=== PATIENT | female | born 1985 | race Caucasian/White ===

== ENCOUNTER 2017-02-28 10:46 | Emergency (ER) | payer OTHER, SELFPAY ==
[~2017-02-28] VITALS: Ht 162.6 cm; Wt 51.5 kg
[2017-02-28 11:25] LABS: BASO % 0.2 % (0.0-1.0); EOS # 0.1 K/mm3 (0.0-0.50); EOS % 1.4 % (0.0-3.0); LARGE UNSTAINED CELL # 0.1 K/mm3 (0.0-0.4); LARGE UNSTAINED CELL % 1.4 % (0.0-4.0); LYMPH # 1.4 K/mm3 (1.5-6.5); LYMPH % 13.8 % (24.0-44.0); MEAN CORPUSCULAR HEMOGLOBIN 31.1 pg (27.0-33.0); MEAN CORPUSCULAR HGB CONC 34.2 g/dl (32.0-36.5); MEAN CORPUSCULAR VOLUME 90.7 fl (80.0-96.0); MONO # 0.4 K/mm3 (0.0-0.8); MONO % 4.5 % (0.0-5.0); NEUTROPHILS # 7.4 K/mm3 (1.8-7.7); NEUTROPHILS % 78.7 % (36.0-66.0); PLATELET COUNT, AUTOMATED 243 k/mm3 (150-450); RED CELL DISTRIBUTION WIDTH 12.8 % (11.5-14.5); WHITE BLOOD COUNT 9.4 K/mm3 (4.0-10.0)
[2017-02-28 12:01] LABS: ANION GAP 9 MEQ/L (8-16); BLOOD UREA NITROGEN 10 MG/DL (7-18); CALCIUM LEVEL 8.4 MG/DL (8.5-10.1); CARBON DIOXIDE LEVEL 23 MEQ/L (21-32); CHLORIDE LEVEL 107 MEQ/L (98-107); CREATININE FOR GFR 0.66 MG/DL (0.55-1.02); FREE T4 1.21 NG/DL (0.76-1.46); GLOMERULAR FILTRATION RATE > 60.0 (>60); GLUCOSE, FASTING 103 MG/DL (70-105); HCG, SERUM QUANTITATIVE 50574 MIU/ML; MAGNESIUM LEVEL 1.5 MG/DL (1.8-2.4); POTASSIUM SERUM 3.6 MEQ/L (3.5-5.1); SODIUM LEVEL 139 MEQ/L (136-145)
--- NOTE | 2017-02-28 12:47 | REP ---
Clinical: Syncope. Dating and viability. Technique: Transabdominal first trimester obstetrical ultrasound. Findings: Single live early intrauterine is appreciated. Gestational sac with yolk sac and pole identified. [place]-rump length of 4 cm corresponds to 10 weeks 6 days gestational age with estimated date of delivery 09/20/2017. heart rate equals 162 beats per minute. Small subchorionic hemorrhage measures 10 x 5 x 10 mm. Impression: Single live early intrauterine at 10 weeks 6 days gestational age. Small subchorionic hemorrhage. Complete anatomical assessment should be performed and 19-20 weeks. Signed by Kvng Leo MD 02/28/2017 12:39 P
[2017-02-28 14:23] VITALS: BP 136/58
--- NOTE | 2017-02-28 19:38 | ECGEPIP ---
Stationary ECG Study [facility] - ED Test Date: 2017-02-28 Pat Name: MICKIE CARBAJAL Department: Room: - Gender: F [employer]: valerio : 1985 Requested By: Antony Conner Order Number: [id number] Reading MD: Antony Conner Measurements Intervals [place] Rate: 47 P: 46 MI: 112 QRS: 73 QRSD: 94 T: 57 QT: 437 QTc: 387 Interpretive Statements SINUS BRADYCARDIA WITH SHORT MI INTERVAL NONSPECIFIC ST T WAVE CHANGES 06/18/15 RATE DECREASED Electronically Signed On 02-28-2017 19:37:59 EDT by Antony Conner
[2017-03-16] MEDS ORDERED: MULT1TAB10 PO (15:42)
== END 2017-02-28 14:43 | disposition home or self-care (01) ==
LOC: M ED 10:46
DX: O36.8911 Maternal care for other specified fetal problems, first trimester, fetus 1 (principal); R42 Dizziness and giddiness; G43.909 Migraine, unspecified, not intractable, without status migrainosus; O99.351 Diseases of the nervous system complicating pregnancy, first trimester; O99.511 Diseases of the respiratory system complicating pregnancy, first trimester; J45.909 Unspecified asthma, uncomplicated; O99.611 Diseases of the digestive system complicating pregnancy, first trimester; K21.9 Gastro-esophageal reflux disease without esophagitis; Z86.14 Personal history of Methicillin resistant Staphylococcus aureus infection; Z3A.10 10 weeks gestation of pregnancy

== ENCOUNTER 2017-03-17 13:54 | Day surgery (SDC) | payer OTHER ==
[~2017-03-17] VITALS: Ht 162.6 cm; Wt 52.2 kg
[~2017-03-17 13:54] MED LIST: MULT1TAB10 PO
[2017-03-17] MEDS ORDERED: VANCOMYCIN HCL 750 MG, VIAL MATE ADAPTER 1 EACH in D5W 250 ML IV ONE (14:00)
[2017-03-17] MEDS ORDERED: VANCOMYCIN HCL 750 MG in D5W 250 ML IV ONE (14:30)
[2017-03-17] MEDS ORDERED: MIDAZOLAM INJ 2 MG/2 ML VIAL (J2250) As Ordered ONE (16:00)
[2017-03-17] MEDS ORDERED: fentaNYL 100 MCG/2 ML INJECTION (J3010) As Ordered ONE (16:00)
[2017-03-17] MEDS ORDERED: PROPOFOL 200 MG/20 ML VIAL As Ordered ONE (16:08)
[2017-03-17] MEDS ORDERED: LIDOCAINE 2% INJ 100 MG/5 ML SDV (FOR ANES.) As Ordered ONE (16:08)
[2017-03-17] MEDS ORDERED: LIDOCAINE 1% SDV INJ 30 ML VIAL As Ordered ONE (16:12)
[2017-03-17] MEDS ORDERED: ePHEDrine SULFATE 25 MG/5 ML(5MG/ML) SYRINGE As Ordered ONE (16:45)
[2017-03-17] MEDS ORDERED: ONDANSETRON 4MG/2ML VIAL (J2405) As Ordered ONE (16:48)
--- NOTE | 2017-03-17 17:27 | RO ---
DATE OF PROCEDURE: 03/17/2017 PREPROCEDURE DIAGNOSIS: Recurrent unexplained syncope. POSTPROCEDURE DIAGNOSIS: Recurrent unexplained syncope. FINDINGS: Recurrent unexplained syncope. PROCEDURE: Implantation of a [employer] LINQ implantable loop recorder. SURGEON: Dr. Talat Fair DERMATOLOGY PHYSICIAN ASSISTANT: None. ANESTHESIA: Lidocaine 1% local/monitored anesthetic care. No specimens. Estimated blood loss: Less than 2 mL. No blood products replaced. No drains. No complications. DESCRIPTION OF PROCEDURE: The patient was prepped and draped over the left anterior chest, sternum and left upper quadrant. Lidocaine 1% was used for local anesthetic. An incision was made with a #15 blade approximately 1 cm in length at the fourth left interspace about a half inch lateral to the left parasternal border. The insertion tool guide was placed into the incision and advanced parallel to the skin and the subcutaneous fat and then rotated 180 degrees. The plunger was then placed into the insertion tool and used to advance the implantable loop recorder into the subcutaneous fat. The plunger was then removed and then the insertion tool guide was removed leaving the loop recorder behind. The initial R wave amplitude was 1.08 millivolts. A 4.0 Biosyn subcutaneous suture was placed to approximate the skin and was used only temporarily to approximate the skin. Next, two layers of Dermabond was applied. Once the Dermabond was dry, the Biosyn suture was removed. Next, Mastisol was placed above and below the incision on the skin and then Steri-Strips were applied perpendicular and across the incision. The patient tolerated the procedure well without any immediate complications. The implantable loop recorder implanted was a [email or web address] Reveal LINQ, model LNQ11 with serial number [id number]. Copy To: Dr. Frankie Skaggs
[2017-03-17 17:45] VITALS: BP 122/57
== END 2017-03-17 17:51 | disposition home or self-care (01) ==
LOC: M SDC 13:54
PROVIDERS: ATTEND Internal Medicine Cardiovascular Disease
DX: R55 Syncope and collapse (principal); F17.210 Nicotine dependence, cigarettes, uncomplicated; J45.909 Unspecified asthma, uncomplicated; G43.909 Migraine, unspecified, not intractable, without status migrainosus; Z33.1 Pregnant state, incidental
CPT/HCPCS: 33282; C1764

== ENCOUNTER 2017-09-20 22:52 | Emergency (ER) | payer SELFPAY, MEDICAID, OTHER | END 2017-09-21 03:06 | disposition left against medical advice (07) | LOC: M ED 22:52 | DX: L98.9 Disorder of the skin and subcutaneous tissue, unspecified (principal); Z53.21 Procedure and treatment not carried out due to patient leaving prior to being seen by health care provider ==

== ENCOUNTER 2018-11-12 11:35 | Emergency (ER) | payer OTHER, SELFPAY ==
[~2018-11-12] VITALS: Ht 160 cm; Wt 56.8 kg
--- NOTE | 2018-11-12 12:19 | REP ---
Left ankle: Four views. History: Pain and swelling. Findings: Four views left ankle demonstrate an intact ankle mortise. No fracture or subluxation is seen. Impression: Negative left ankle radiographs. Electronically Signed by Jamar Ferreira MD 11/12/2018 12:12 P
[2018-11-12] MEDS ORDERED: IBUP-1022 PO (13:00)
[2018-11-12 13:08] VITALS: BP 145/71
--- NOTE | 2018-11-12 14:43 | REP ---
LEFT FOOT COMPLETE: 11/12/2018. Comparison: Left ankle series today. Clinical history: trauma, patient fell. Findings: The four views show no plantar or Achilles insertional spurs on the posterior calcaneus. Subtalar joints intact. Talus, calcaneus, tarsal bones and their articulations were all grossly intact without fracture or focal lesion. Metatarsals, phalanges and associated joints also unremarkable. Impression: 1. There is no avulsion, fracture, subluxation or other acute bony finding about the left foot. Electronically Signed by Eric Eden MD 11/12/2018 05:14 P
== END 2018-11-12 13:10 | disposition home or self-care (01) ==
LOC: M ED 11:35
DX: S93.402A Sprain of unspecified ligament of left ankle, initial encounter (principal); S90.02XA Contusion of left ankle, initial encounter; X50.1XXA Overexertion from prolonged static or awkward postures, initial encounter; Y92.9 Unspecified place or not applicable; Y93.9 Activity, unspecified; Y99.9 Unspecified external cause status; N80.9 Endometriosis, unspecified; J30.2 Other seasonal allergic rhinitis; Z95.818 Presence of other cardiac implants and grafts; Z77.098 Contact with and (suspected) exposure to other hazardous, chiefly nonmedicinal, chemicals; F12.10 Cannabis abuse, uncomplicated

== ENCOUNTER → 2019-01-10 | Outpatient (REF) | payer OTHER ==
[~2019-01-10] MED LIST changes: +IBUP-1022 PO
[2019-01-10 13:53] LABS: BASO % 0.6 % (0.0-1.0); EOS # 0.4 10^3/uL (0.0-0.50); EOS % 4.9 % (0.0-3.0); HEMATOCRIT 43.6 % (36.0-47.0); HEMOGLOBIN 14.5 g/dl (12.0-15.5); LYMPH % 27.3 % (24.0-44.0); MEAN CORPUSCULAR HEMOGLOBIN 31.6 pg (27.0-33.0); MEAN CORPUSCULAR HGB CONC 33.3 g/dl (32.0-36.5); MONO # 0.6 10^3/uL (0.0-0.8); MONO % 8.6 % (0.0-5.0); NEUTROPHILS # 4.2 10^3/uL (1.8-7.7); NEUTROPHILS % 58.2 % (36.0-66.0); PLATELET COUNT, AUTOMATED 239 10^3/uL (150-450); RED BLOOD COUNT 4.59 10^6/uL (4.00-5.40); WHITE BLOOD COUNT 7.2 10^3/uL (4.0-10.0)
[2019-01-10 14:12] LABS: ALBUMIN 3.8 GM/DL (3.2-5.2); ALT/SGPT 12 U/L (12-78); BILIRUBIN,TOTAL 0.6 MG/DL (0.2-1.0); BLOOD UREA NITROGEN 9 MG/DL (7-18); CALCIUM LEVEL 8.9 MG/DL (8.5-10.1); CARBON DIOXIDE LEVEL 24 MEQ/L (21-32); CHLORIDE LEVEL 106 MEQ/L (98-107); CREATININE FOR GFR 0.82 MG/DL (0.55-1.30); FOLATE 11.5 NG/ML (>5.4); GLOMERULAR FILTRATION RATE > 60.0 (>60); GLUCOSE, FASTING 113 MG/DL (70-100); POTASSIUM SERUM 3.9 MEQ/L (3.5-5.1); RHEUMATOID FACTOR QUANT < 10.0 IU/ML (<15.0); SODIUM LEVEL 139 MEQ/L (136-145); VITAMIN B12 LEVEL 632 PG/ML (247-911)
[2019-01-10 14:21] LABS: ERYTHROCYTE SEDIMENTATION RATE 7 mm/hr (0-20)
[2019-01-13 14:07] LABS: ANCA-ATYPICAL <1:20 titer (Neg:<1:20); ANTI DS-DNA AB <1:10 titer (.); ANTINUCLEAR ANTIBODIES DIRECT Negative (Negative); CYTOPLASMIC NEUTROP AB ANCA-C <1:20 titer (Neg:<1:20); PERINUCLEAR AB ANCA-P <1:20 titer (Neg:<1:20); SJOGREN'S ANTI SS-A <0.2 AI (0.0-0.9); SJOGREN'S ANTI SS-B <0.2 AI (0.0-0.9); VITAMIN B6,PYRIDOXAL PHOSPHATE 3.7 ug/L (2.0-32.8); VITAMIN E(ALPHA TOCOPHEROL) 10.1 mg/L (5.9-19.4)
== END ==
LOC: M LABNEURO 08:59
PROVIDERS: ATTEND Psychiatry & Neurology Neurology
DX: R55 Syncope and collapse (principal); R42 Dizziness and giddiness

== ENCOUNTER → 2019-09-20 | Outpatient (REF) | payer OTHER ==
[2019-09-20 13:12] LABS: RHEUMATOID FACTOR QUANT < 10.0 IU/ML (<15.0)
[2019-09-22 00:07] LABS: ANTINUCLEAR ANTIBODIES DIRECT Negative (Negative); Lyme Disease IgG/IgM Antibodie <0.91 ISR (0.00-0.90); Lyme Disease IgM Ab Quantitati <0.80 index (0.00-0.79)
== END ==
LOC: M LABDRAW1 10:46
PROVIDERS: ATTEND Psychiatry & Neurology Neurology
DX: R55 Syncope and collapse (principal)

== ENCOUNTER → 2019-10-18 | Outpatient (CLI) | payer OTHER ==
[2019-10-18 13:22] LABS: BASO % 0.4 % (0.0-1.0); EOS # 0.2 10^3/uL (0.0-0.5); EOS % 2.6 % (0.0-3.0); HEMATOCRIT 44.3 % (36.0-47.0); HEMOGLOBIN 14.8 g/dl (12.0-15.5); LYMPH # 2.3 10^3/uL (1.5-5.0); LYMPH % 30.3 % (24.0-44.0); MEAN CORPUSCULAR HEMOGLOBIN 31.5 pg (27.0-33.0); MEAN CORPUSCULAR HGB CONC 33.4 g/dl (32.0-36.5); MEAN CORPUSCULAR VOLUME 94.3 fl (80.0-96.0); MONO # 0.6 10^3/uL (0.0-0.8); NEUTROPHILS # 4.4 10^3/uL (1.5-8.5); NEUTROPHILS % 58.4 % (36.0-66.0); PLATELET COUNT, AUTOMATED 254 10^3/uL (150-450); WHITE BLOOD COUNT 7.6 10^3/uL (4.0-10.0)
[2019-10-18 13:42] LABS: TOTAL PROTEIN 6.7 GM/DL (6.4-8.2)
[2019-10-18 13:49] LABS: FOLATE 15.2 NG/ML (>5.4); VITAMIN B12 LEVEL 691 PG/ML (247-911)
[2019-10-18 14:12] LABS: HEMOGLOBIN A1c 5.5 %
[2019-10-20 00:06] LABS: ANTINUCLEAR ANTIBODIES DIRECT Negative (Negative)
== END ==
LOC: M PLALAB 10:30
PROVIDERS: ATTEND Registered Nurse
DX: R42 Dizziness and giddiness (principal); R53.83 Other fatigue

== ENCOUNTER 2020-10-17 15:33 | Emergency (ER) | payer OTHER ==
[~2020-10-17] VITALS: Ht 162.6 cm; Wt 55.5 kg
[2020-10-17 15:33] VITALS: BP 119/71
[2020-10-17] MEDS ORDERED: ERYT5OIN25 OS (17:15)
[2020-10-17] MEDS ORDERED: BACT800T5 PO (17:15)
[2020-10-17] MEDS ORDERED: KETOROLAC TROMETHAMINE 10 MG TAB PO ONE (17:15)
== END 2020-10-17 17:38 | disposition home or self-care (01) ==
LOC: M ED 15:33
DX: H00.012 Hordeolum externum right lower eyelid (principal); L03.213 Periorbital cellulitis

== ENCOUNTER → 2020-11-22 | Outpatient (REF) | payer OTHER ==
[~2020-11-22] MED LIST changes: +BACT800T5 PO; +ERYT5OIN25 OS
[2020-11-22 18:09] LABS: HEMATOCRIT 42.5 % (36.0-47.0); HEMOGLOBIN 13.8 g/dl (12.0-15.5); MEAN CORPUSCULAR HGB CONC 32.5 g/dl (32.0-36.5); MEAN CORPUSCULAR VOLUME 95.5 fl (80.0-96.0); PLATELET COUNT, AUTOMATED 288 10^3/uL (150-450); RED BLOOD COUNT 4.45 10^6/uL (4.00-5.40); WHITE BLOOD COUNT 8.7 10^3/uL (4.0-10.0)
[2020-11-22 18:38] LABS: ALBUMIN 4.1 GM/DL (3.2-5.2); ALT/SGPT 14 U/L (12-78); BILIRUBIN,TOTAL 0.8 MG/DL (0.2-1.0); BLOOD UREA NITROGEN 9 MG/DL (7-18); CALCIUM LEVEL 9.2 MG/DL (8.5-10.1); CARBON DIOXIDE LEVEL 28 MEQ/L (21-32); CHLORIDE LEVEL 107 MEQ/L (98-107); CREATININE FOR GFR 0.73 MG/DL (0.55-1.30); GLOMERULAR FILTRATION RATE > 60.0 (>60); GLUCOSE, FASTING 97 MG/DL (70-100); MAGNESIUM LEVEL 1.8 MG/DL (1.8-2.4); NT-PRO BNP 331 PG/ML (<125); POTASSIUM SERUM 3.9 MEQ/L (3.5-5.1); SODIUM LEVEL 141 MEQ/L (136-145)
== END ==
LOC: M PLALAB 16:43
PROVIDERS: ATTEND Internal Medicine Cardiovascular Disease
DX: I47.2 Ventricular tachycardia (principal); E78.2 Mixed hyperlipidemia; R06.09 Other forms of dyspnea

== ENCOUNTER → 2020-12-11 | Outpatient (REF) | payer OTHER | LOC: M SFHCWAGY 17:19 | PROVIDERS: ATTEND Nurse Practitioner Women's Health | DX: Z12.4 Encounter for screening for malignant neoplasm of cervix (principal) ==

== ENCOUNTER → 2021-11-28 | Outpatient (REF) | LOC: M LAB 15:04 | PROVIDERS: ATTEND Nurse Practitioner Adult Health | DX: Z02.1 Encounter for pre-employment examination (principal) ==

== ENCOUNTER 2022-01-01 09:07 | Emergency (ER) | payer OTHER ==
[~2022-01-01] VITALS: Ht 162.6 cm; Wt 62.3 kg
[2022-01-01] MEDS ORDERED: CETI-24 PO (09:29)
[2022-01-01] MEDS ORDERED: OMEP-173 PO (09:29)
[2022-01-01] MEDS ORDERED: PRED5PAK PO (09:29)
[2022-01-01 10:49] LABS: BASO # 0.1 10^3/uL (0.0-0.2); BASO % 0.6 % (0.0-1.0); EOS # 0.1 10^3/uL (0.0-0.5); EOS % 1.2 % (0.0-3.0); HEMATOCRIT 42.8 % (36.0-47.0); HEMOGLOBIN 14.4 g/dl (12.0-15.5); LYMPH # 2.1 10^3/uL (1.5-5.0); LYMPH % 23.6 % (24.0-44.0); MEAN CORPUSCULAR HEMOGLOBIN 31.5 pg (27.0-33.0); MEAN CORPUSCULAR HGB CONC 33.6 g/dl (32.0-36.5); MEAN CORPUSCULAR VOLUME 93.7 fl (80.0-96.0); MONO # 0.7 10^3/uL (0.0-0.8); MONO % 7.4 % (2.0-8.0); NEUTROPHILS # 5.9 10^3/uL (1.5-8.5); NEUTROPHILS % 66.7 % (36.0-66.0); PLATELET COUNT, AUTOMATED 321 10^3/uL (150-450); RED BLOOD COUNT 4.57 10^6/uL (4.00-5.40); WHITE BLOOD COUNT 8.8 10^3/uL (4.0-10.0)
[2022-01-01 11:17] LABS: ALBUMIN 4.3 GM/DL (3.2-5.2); ALT/SGPT 16 U/L (12-78); AMYLASE 35 U/L (25-115); BILIRUBIN,DIRECT 0.3 MG/DL (0.0-0.2); BILIRUBIN,TOTAL 1.2 MG/DL (0.2-1.0); BLOOD UREA NITROGEN 9 MG/DL (7-18); CALCIUM LEVEL 10.5 MG/DL (8.5-10.1); CARBON DIOXIDE LEVEL 26 MEQ/L (21-32); CHLORIDE LEVEL 106 MEQ/L (98-107); CREATININE FOR GFR 0.69 MG/DL (0.55-1.30); GLOMERULAR FILTRATION RATE > 60.0 (>60); GLUCOSE, FASTING 103 MG/DL (70-100); POTASSIUM SERUM 4.1 MEQ/L (3.5-5.1); SODIUM LEVEL 139 MEQ/L (136-145); TOTAL PROTEIN 7.3 GM/DL (6.4-8.2)
[2022-01-01 11:28] LABS: HCG, SERUM QUALITATIVE NEGATIVE (NEGATIVE)
[2022-01-01] MEDS ORDERED: ONDANSETRON 4MG 2ML VIAL IV ONE (12:25)
[2022-01-01] MEDS ORDERED: NS 1,000 ML IV ONE (12:25)
[2022-01-01] MEDS ORDERED: PANTOPRAZOLE 40MG VIAL IV ONE (12:25)
[2022-01-01] MEDS ORDERED: ONDA4TAB6 PO (14:22)
[2022-01-01] MEDS ORDERED: PANT40TA29 PO (14:22)
[2022-01-01 14:49] VITALS: BP 154/74
== END 2022-01-01 14:58 | disposition home or self-care (01) ==
LOC: M ED 09:07
DX: K21.9 Gastro-esophageal reflux disease without esophagitis (principal); J45.909 Unspecified asthma, uncomplicated; G43.909 Migraine, unspecified, not intractable, without status migrainosus; F17.200 Nicotine dependence, unspecified, uncomplicated; Z91.048 Other nonmedicinal substance allergy status; Z79.899 Other long term (current) drug therapy
CPT/HCPCS: 76705; 80048; 80076; 82150; 84703; 85025; 96361; 96374; 99284; C9113; J2405

== ENCOUNTER → 2022-03-21 | Outpatient (REF) ==
[~2022-03-21] MED LIST changes: +CETI-24 PO; +OMEP-173 PO; +ONDA4TAB6 PO; +PANT40TA29 PO; +PRED5PAK PO
== END ==
LOC: M EMP 09:58
PROVIDERS: ATTEND Family Medicine
DX: Z20.822 Contact with and (suspected) exposure to COVID-19 (principal); Z11.52 Encounter for screening for COVID-19

== ENCOUNTER → 2022-07-17 | Outpatient (CLI) | payer OTHER ==
[~2022-07-17] MED LIST changes: +FLON1SPR; +PRENTAB53 PO; +UNIS25TA3 PO; +[UNRECOGNIZED DRUG - OTHER] PO
== END ==
LOC: M LABSMTC 10:04
PROVIDERS: ATTEND Anesthesiology
DX: Z01.812 Encounter for preprocedural laboratory examination (principal); Z11.52 Encounter for screening for COVID-19

== ENCOUNTER 2022-07-22 10:45 | Day surgery (SDC) | payer OTHER ==
[~2022-07-22] VITALS: Ht 162.6 cm; Wt 67.5 kg
[~2022-07-22 10:45] MED LIST changes: +NS 1,000 ML IV ONE
[2022-07-22] MEDS ORDERED: propofoL 200 MG/20 ML VIAL As Ordered ONE ×4 (12:23→12:45)
[2022-07-22] MEDS ORDERED: LIDOCAINE 2% 100MG/5ML SDV (FOR ANES.) As Ordered ONE (12:23)
[2022-07-22 13:15] VITALS: BP 137/81
== END 2022-07-22 13:22 | disposition home or self-care (01) ==
LOC: M OPP 10:45
PROVIDERS: ATTEND Internal Medicine Gastroenterology
DX: K64.4 Residual hemorrhoidal skin tags (principal); K64.8 Other hemorrhoids; K63.89 Other specified diseases of intestine; D12.5 Benign neoplasm of sigmoid colon; K52.9 Noninfective gastroenteritis and colitis, unspecified; K44.9 Diaphragmatic hernia without obstruction or gangrene; K29.70 Gastritis, unspecified, without bleeding; Z79.51 Long term (current) use of inhaled steroids; Z79.899 Other long term (current) drug therapy; G90.8 Other disorders of autonomic nervous system; G43.909 Migraine, unspecified, not intractable, without status migrainosus; J45.909 Unspecified asthma, uncomplicated; Z15.01 Genetic susceptibility to malignant neoplasm of breast; Z15.02 Genetic susceptibility to malignant neoplasm of ovary; Z86.14 Personal history of Methicillin resistant Staphylococcus aureus infection; F17.200 Nicotine dependence, unspecified, uncomplicated; Z80.1 Family history of malignant neoplasm of trachea, bronchus and lung; Z80.3 Family history of malignant neoplasm of breast; Z80.41 Family history of malignant neoplasm of ovary; Z80.8 Family history of malignant neoplasm of other organs or systems

== ENCOUNTER → 2022-08-14 | Outpatient (CLI) | payer OTHER ==
[~2022-08-14] MED LIST changes: -NS 1,000 ML IV ONE
[2022-08-14 18:51] LABS: BASO % 0.6 % (0.0-1.0); EOS # 0.3 10^3/uL (0.0-0.5); HEMATOCRIT 45.1 % (36.0-47.0); HEMOGLOBIN 14.6 g/dl (12.0-15.5); LYMPH # 2.6 10^3/uL (1.5-5.0); LYMPH % 39.6 % (24.0-44.0); MEAN CORPUSCULAR HEMOGLOBIN 30.7 pg (27.0-33.0); MEAN CORPUSCULAR HGB CONC 32.4 g/dl (32.0-36.5); MEAN CORPUSCULAR VOLUME 94.9 fl (80.0-96.0); MONO # 0.5 10^3/uL (0.0-0.8); MONO % 8.1 % (2.0-8.0); NEUTROPHILS # 3.1 10^3/uL (1.5-8.5); NEUTROPHILS % 47.5 % (36.0-66.0); PLATELET COUNT, AUTOMATED 286 10^3/uL (150-450); RED BLOOD COUNT 4.75 10^6/uL (4.00-5.40); WHITE BLOOD COUNT 6.5 10^3/uL (4.0-10.0)
[2022-08-14 19:01] LABS: C REACTIVE PROTEIN QUANTITATIV < 0.40 MG/DL (<1.0)
[2022-08-14 19:14] LABS: ALBUMIN 4.3 G/DL (3.2-5.2); ALKALINE PHOSPHATASE 51 U/L (46-116); ALT/SGPT 15 U/L (7.0-40); AST/SGOT 17 U/L (<34); BILIRUBIN,DIRECT 0.2 MG/DL (<0.4); BILIRUBIN,TOTAL 0.7 MG/DL (0.3-1.2); BLOOD UREA NITROGEN 11 MG/DL (9-23); CREATININE FOR GFR 0.72 MG/DL (0.55-1.30); GLOMERULAR FILTRATION RATE > 60.0 (>60)
[2022-08-14 19:18] LABS: ERYTHROCYTE SEDIMENTATION RATE 3 mm/hr (0-20)
== END ==
LOC: M PLALAB 15:54
PROVIDERS: ATTEND Nurse Practitioner Family
DX: R19.7 Diarrhea, unspecified (principal)

== ENCOUNTER → 2022-10-20 | Outpatient (CLI) | payer OTHER | LOC: M RAD 07:25 | PROVIDERS: ATTEND Nurse Practitioner Family | DX: R10.11 Right upper quadrant pain (principal) ==

== ENCOUNTER → 2022-10-28 | Outpatient (REF) ==
[2022-10-28 09:31] LABS: RSV AMPLIFICATION NEGATIVE (NEGATIVE)
== END ==
LOC: M EMP 08:18
PROVIDERS: ATTEND Family Medicine
DX: Z20.828 Contact with and (suspected) exposure to other viral communicable diseases (principal)

== ENCOUNTER → 2022-12-10 | Outpatient (CLI) | payer OTHER | LOC: M RAD 07:41 | PROVIDERS: ATTEND Nurse Practitioner Family | DX: R10.11 Right upper quadrant pain (principal) | CPT/HCPCS: 78227; A9537 ==

== ENCOUNTER → 2023-03-01 | Outpatient (REF) | LOC: M EMP 09:02 | PROVIDERS: ATTEND Family Medicine | DX: Z11.52 Encounter for screening for COVID-19 (principal) ==

== ENCOUNTER → 2023-05-09 | Outpatient (REF) ==
[2023-05-09 11:46] LABS: RSV AMPLIFICATION NEGATIVE (NEGATIVE)
== END ==
LOC: M EMP 09:04
PROVIDERS: ATTEND Family Medicine
DX: Z11.52 Encounter for screening for COVID-19 (principal)

== ENCOUNTER → 2023-05-15 | Outpatient (CLI) | payer OTHER | LOC: M SLEEP 20:00 | PROVIDERS: ATTEND Nurse Practitioner Adult Health | DX: R06.83 Snoring (principal) ==

== ENCOUNTER → 2023-09-25 | Outpatient (CLI) | payer OTHER ==
[~2023-09-25] MED LIST changes: +ACET32TAB PO; +IBUP200C28 PO; +PROHANCE 279.3MG/ML 15ML VIAL ONE
== END ==
LOC: M PLAIMG 12:55
PROVIDERS: ATTEND Nurse Practitioner Family
DX: Z15.01 Genetic susceptibility to malignant neoplasm of breast (principal); Z80.3 Family history of malignant neoplasm of breast; Z80.41 Family history of malignant neoplasm of ovary
CPT/HCPCS: 77049; A9576

== ENCOUNTER → 2023-10-02 | Outpatient (REF) ==
[~2023-10-02] MED LIST changes: -PROHANCE 279.3MG/ML 15ML VIAL ONE
== END ==
LOC: M EMP 10:54
PROVIDERS: ATTEND Family Medicine
DX: Z01.89 Encounter for other specified special examinations (principal)

== ENCOUNTER → 2023-10-07 | Outpatient (CLI) | payer OTHER ==
[2023-10-07 18:18] LABS: ALBUMIN 4.1 G/DL (3.2-5.2); ALKALINE PHOSPHATASE 56 U/L (46-116); ALT/SGPT 14 U/L (7.0-40); AST/SGOT 9 U/L (<34); BILIRUBIN,TOTAL 0.6 MG/DL (0.3-1.2); BLOOD UREA NITROGEN 12 MG/DL (9-23); CALCIUM LEVEL 9.1 MG/DL (8.5-10.1); CARBON DIOXIDE LEVEL 27 MMOL/L (20-31); CHLORIDE LEVEL 106 MMOL/L (98-107); CREATININE FOR GFR 0.67 MG/DL (0.55-1.30); GLOMERULAR FILTRATION RATE > 60.0 (>60); GLUCOSE, FASTING 101 MG/DL (60-100); MAGNESIUM LEVEL 1.5 MG/DL (1.8-2.4); POTASSIUM SERUM 4.1 MMOL/L (3.5-5.1); SODIUM LEVEL 139 MMOL/L (136-145); TOTAL PROTEIN 6.6 G/DL (5.7-8.2)
[2023-10-07 18:23] LABS: THYROID STIMULATING HORMONE 1.229 uIU/ML (0.55-4.78)
[2023-10-07 18:24] LABS: TOTAL 25(OH) VITAMIN D 20.4 NG/ML (20.0-100.0)
== END ==
LOC: M PLALAB 15:06
PROVIDERS: ATTEND Internal Medicine Cardiovascular Disease
DX: E78.2 Mixed hyperlipidemia (principal); I48.0 Paroxysmal atrial fibrillation; E55.9 Vitamin D deficiency, unspecified; I50.9 Heart failure, unspecified

== ENCOUNTER 2023-10-28 06:08 | Day surgery (SDC) | payer OTHER ==
[~2023-10-28] VITALS: Ht 162.6 cm; Wt 65.3 kg
[~2023-10-28 06:08] MED LIST changes: +LR 1,000 ML IV SCH
[2023-10-28 07:10] LABS: HEMATOCRIT 41.7 % (36.0-47.0); HEMOGLOBIN 14.1 g/dl (12.0-15.5); MEAN CORPUSCULAR HEMOGLOBIN 31.5 pg (27.0-33.0); MEAN CORPUSCULAR HGB CONC 33.8 g/dl (32.0-36.5); MEAN CORPUSCULAR VOLUME 93.3 fl (80.0-96.0); PLATELET COUNT, AUTOMATED 298 10^3/uL (150-450); RED BLOOD COUNT 4.47 10^6/uL (4.00-5.40)
[2023-10-28] MEDS ORDERED: MIDAZOLAM INJ 2MG/2ML VIAL As Ordered ONE (07:14)
[2023-10-28] MEDS ORDERED: LIDOCAINE 2% 100MG/5ML SDV (FOR ANES.) As Ordered ONE (07:14)
[2023-10-28] MEDS ORDERED: ROCURONIUM BROMIDE 50MG/5ML VIAL As Ordered ONE (07:14)
[2023-10-28] MEDS ORDERED: propofoL 200 MG/20 ML VIAL As Ordered ONE (07:14)
[2023-10-28] MEDS ORDERED: fentaNYL 250 MCG/5 ML INJECTION As Ordered ONE (07:14)
[2023-10-28] MEDS: SCOPOLAMINE 1MG TRANSDERMAL PATCH TOP ONE (07:25)
[2023-10-28] MEDS: LR 1,000 ML IV SCH (07:25)
[2023-10-28] MEDS: ceFAZolin SOD 2 GM in IV 1 EA IV ONE (07:50)
[2023-10-28] MEDS ORDERED: SUGAMMADEX SODIUM 500 MG/5 ML VIAL (BRIDION) As Ordered ONE (08:14)
[2023-10-28] MEDS ORDERED: HYDROmorphone HCL 2MG/ML 1ML VIAL As Ordered ONE (08:14)
[2023-10-28] MEDS ORDERED: METOCLOPRAMIDE INJ 10MG/2ML VIAL As Ordered ONE (08:14)
[2023-10-28] MEDS ORDERED: ONDANSETRON 4MG 2ML VIAL As Ordered ONE (08:15)
[2023-10-28] MEDS ORDERED: KETOROLAC 60MG 2ML VIAL As Ordered ONE (08:15)
[2023-10-28] MEDS ORDERED: ACETAMINOPHEN 1000MG 100ML IV BAG As Ordered ONE (08:17)
[2023-10-28] MEDS ORDERED: MORPHINE 2 MG/ML 1ML VIAL IV PRN (08:55)
[2023-10-28] MEDS ORDERED: IBUP-1022 PO (09:10)
[2023-10-28] MEDS ORDERED: OXYC1TAB23 PO (09:11)
[2023-10-28] MEDS ORDERED: LR 1,000 ML IV SCH (09:25)
[2023-10-28] MEDS ORDERED: PERCOCET 5MG/325MG TAB PO PRN (09:25)
[2023-10-28] MEDS: fentaNYL 100 MCG/2 ML INJECTION IV PRN (09:38)
[2023-10-28] MEDS: ONDANSETRON 4MG 2ML VIAL IV PRN (09:40)
[2023-10-28] MEDS: oxyCODONE 5MG TAB PO PRN (10:13)
[2023-10-28 10:50] VITALS: BP 128/63; TEMP 98; O2SAT 100
== END 2023-10-28 10:55 | disposition home or self-care (01) ==
LOC: M SDC 06:08
PROVIDERS: ATTEND Specialist
DX: N80.03 Adenomyosis of the uterus (principal); N94.6 Dysmenorrhea, unspecified; N93.9 Abnormal uterine and vaginal bleeding, unspecified; J30.2 Other seasonal allergic rhinitis; G90.A Postural orthostatic tachycardia syndrome [POTS]; K21.9 Gastro-esophageal reflux disease without esophagitis; G43.909 Migraine, unspecified, not intractable, without status migrainosus; F17.200 Nicotine dependence, unspecified, uncomplicated; Z79.899 Other long term (current) drug therapy; J45.909 Unspecified asthma, uncomplicated
CPT/HCPCS: 36415; 58571; 81025; 85027; 86850; 86900; 86901; 88307; J0131; J0665; J0690; J1100; J1170; J1885; J2250; J2405; J2765; J3010; S2900

== ENCOUNTER → 2024-02-01 | Outpatient (REF) ==
[~2024-02-01] MED LIST changes: -LR 1,000 ML IV SCH; +ONDA-282 PO; -ONDA4TAB6 PO; +OXYC1TAB23 PO
== END ==
LOC: M EMP 07:47
PROVIDERS: ATTEND Family Medicine
DX: Z20.822 Contact with and (suspected) exposure to COVID-19 (principal)

== ENCOUNTER → 2024-02-05 | Outpatient (REF) | LOC: M EMP 07:35 | PROVIDERS: ATTEND Family Medicine | DX: Z20.822 Contact with and (suspected) exposure to COVID-19 (principal) ==

== ENCOUNTER → 2024-03-25 | Outpatient (REF) | LOC: M EMP 11:53 | PROVIDERS: ATTEND Family Medicine | DX: Z11.52 Encounter for screening for COVID-19 (principal) ==

== ENCOUNTER → 2024-03-30 | Outpatient (CLI) | payer OTHER | LOC: M WHC 15:12 | PROVIDERS: ATTEND Nurse Practitioner Family | DX: Z12.31 Encounter for screening mammogram for malignant neoplasm of breast (principal); Z80.3 Family history of malignant neoplasm of breast; Z80.41 Family history of malignant neoplasm of ovary ==

== ENCOUNTER → 2024-08-29 | Outpatient (REF) | LOC: M EMP 08:18 | PROVIDERS: ATTEND Family Medicine | DX: Z11.52 Encounter for screening for COVID-19 (principal) ==

== ENCOUNTER → 2025-05-01 | Outpatient (REF) ==
[~2025-05-01] MED LIST changes: -IBUP-1022 PO; +IBUP600T42 PO; +IBUP80TA PO
== END ==
LOC: M EMP 12:14
PROVIDERS: ATTEND Family Medicine
DX: Z11.52 Encounter for screening for COVID-19 (principal)